=== PATIENT | female | born 1960 | race Caucasian/White ===

== ENCOUNTER 2017-07-20 19:07 | Inpatient (IN) | payer MEDICARE, OTHER ==
[~2017-07-20] VITALS: Ht 162.6 cm; Wt 53.4 kg
[~2017-07-20 19:07] MED LIST: MIDAZOLAM 1 MG/ML, 5ML ONE; PROPOFOL 10 MG/ML, 100ML IV ONE; SUCCINYLCHOLINE 20 MG/ML, 10ML ONE
[2017-07-20] MEDS ORDERED: PIPERACILLIN/TAZO/PMX 3.375GM 50 ML IVPB ONE (19:30)
[2017-07-20] MEDS ORDERED: VANCOMYCIN PER PHARMACY MC ONE (19:30)
[2017-07-20] MEDS ORDERED: VANCOMYCIN PMX 1GM/200ML 200 ML IV ONE (19:30)
[2017-07-20] MEDS ORDERED: ACETAMINOPHEN 500 MG TABLET PO ONE (19:30)
[2017-07-20] MEDS ORDERED: ACETAMINOPHEN 650 MG SUPP PR PRN (19:30)
[2017-07-20] MEDS ORDERED: SODIUM CHLORIDE 0.9% 1,000ML IVBOLUS ONE ×2 (19:30)
[2017-07-20] MEDS ORDERED: ACETAMINOPHEN 650 MG SUPP ONE (19:33)
[2017-07-20] MEDS ORDERED: MORPHINE SULFATE 4 MG/ML, 1ML ONE ×3 (19:33→22:49)
[2017-07-20] MEDS ORDERED: ONDANSETRON 2MG/ML, 2ML ONE (19:33)
[2017-07-20] MEDS ORDERED: PIPERACILLIN/TAZO/PMX 3.375GM 50 ML ONE (19:33)
[2017-07-20] MEDS: MORPHINE SULFATE 4 MG/ML, 1ML IVPush PRN ×2 (19:38→20:25)
[2017-07-20] MEDS ORDERED: PROMETHAZINE 25 MG/ML, 1ML ONE (19:38)
[2017-07-20] MEDS ORDERED: LABETALOL 5MG/ML, 20ML ONE (19:38)
[2017-07-20 19:47] LABS: INTERNATIONAL NORMALIZED RATIO 1.04 (0.93-1.1); PROTHROMBIN TIME 10.7 Seconds (9.6-11.5)
[2017-07-20 19:51] LABS: ALANINE AMINOTRANSFERASE 27 U/L (12-78); ALBUMIN 2.7 g/dL (3.4-5.0); ANION GAP 8 mmol/L (5-15); CALCIUM 8.3 mg/dL (8.5-10.1); CHLORIDE 100 mmol/L (98-107)
[2017-07-20 19:54] LABS: ALKALINE PHOSPHATASE 124 U/L (45-117); BILIRUBIN,TOTAL 0.6 mg/dL (0.2-1.0); CREATININE 0.69 mg/dL (0.55-1.02); TOTAL PROTEIN 8.2 g/dL (6.4-8.2)
[2017-07-20] MEDS ORDERED: PROMETHAZINE 25 MG/ML, 1ML IM ONE (20:00)
[2017-07-20] MEDS ORDERED: OXYC30TA66 PO (20:00)
[2017-07-20] MEDS ORDERED: CLINDAMYCIN PMX 900MG/50ML 50 ML IVPB ONE (20:00)
[2017-07-20] MEDS ORDERED: LABETALOL 5MG/ML, 20ML IVPush ONE (20:00)
[2017-07-20 20:06] LABS: PH, VENOUS 7.228 pH (7.320-7.420)
[2017-07-20 20:07] LABS: MICROSCOPIC INDICATED
[2017-07-20 20:19] LABS: BASOPHILS % (AUTO) 0 % (0-1); EOSINOPHILS % (AUTO) 0 % (1-7); LYMPHOCYTES # (AUTO) 0.78 x10^3/uL (1-3.4); LYMPHOCYTES % (AUTO) 7 % (22-44); MD NO; MEAN CORPUSCULAR HEMOGLOBIN 30.8 pg (27.0-34.8); MEAN CORPUSCULAR HGB CONC 32.8 g/dL (32.4-35.8); MEAN CORPUSCULAR VOLUME 93.8 fL (80-100); MEAN PLATELET VOLUME 7.5 fL (7.4-10.4); MONOCYTES # (AUTO) 0.47 x10^3/uL (0.2-0.8); MONOCYTES % (AUTO) 4 % (2-9); NEUTROPHILS # (AUTO) 10.24 x10^3/uL (1.8-6.8); NEUTROPHILS % (AUTO) 89 % (42-75); PLATELET COUNT 475 x10^3/uL (130-400); RED BLOOD COUNT 4.46 x10^6/uL (3.82-5.3); RED CELL DISTRIBUTION WIDTH 14.1 % (9.6-15.2)
[2017-07-20 20:25] LABS: CULTURE INDICATED? YES
[2017-07-20 20:27] LABS: AMPHETAMINE SCREEN, URINE Negative (Negative); BARBITURATE SCREEN, URINE Negative (Negative); BENZODIAZEPINE SCREEN, URINE Negative (Negative); CANNABINOID SCREEN, URINE Positive (Negative); COCAINE SCREEN, URINE Negative (Negative); METHADONE SCREEN, URINE Negative (Negative); OPIATE SCREEN, URINE Negative (Negative)
[2017-07-20 20:48] LABS: FREE T4 (FREE THYROXINE) 1.3 ng/dL (0.76-1.46); THYROID STIMULATING HORMONE 1.48 mIU/L (0.358-3.740)
[2017-07-20] MEDS ORDERED: LORazepam 2 MG/ML, 1ML ONE ×3 (20:58→22:59)
[2017-07-20] MEDS ORDERED: LORazepam 2 MG/ML, 1ML IVPush ONE ×2 (21:00→22:30)
[2017-07-20] MEDS ORDERED: LIDOCAINE 1%, 20ML INFIL ONE (21:00)
[2017-07-20] MEDS ORDERED: OMNIPAQUE 350 MG/ML, 100ML BOTTLE ONE (21:24)
[2017-07-20] MEDS ORDERED: LIDOCAINE 1%, 10ML ONE (21:28)
[2017-07-20] MEDS ORDERED: CLINDAMYCIN PMX 900MG/50ML 50 ML ONE (21:28)
[2017-07-20] MEDS ORDERED: MORPHINE SULFATE 4 MG/ML, 1ML IVPush ONE (22:30)
[2017-07-20] MEDS: NS + 20MEQ KCL 1,000 ML IV SCH (23:12)
[2017-07-20] MEDS ORDERED: LORazepam 2 MG/ML, 1ML IVPush PRN (23:30)
[2017-07-20] MEDS ORDERED: ONDANSETRON 2MG/ML, 2ML IVPush PRN (23:30)
[2017-07-20] MEDS ORDERED: VANCOMYCIN PER PHARMACY MC PRN (23:30)
[2017-07-20] MEDS ORDERED: hydrALAzine 20 MG/ML, 1ML IVPush PRN (23:30)
[2017-07-20] MEDS ORDERED: BISACODYL 10 MG SUPP PR PRN (23:30)
[2017-07-20] MEDS ORDERED: FAMOTIDINE 20 MG/2 ML ONE (23:53)
[2017-07-20] MEDS ORDERED: NS + 20MEQ KCL 1,000 ML IV ONE (23:53)
[2017-07-20] MEDS: FAMOTIDINE 20 MG/2 ML IVPush SCH (23:54)
[2017-07-21] MEDS ORDERED: ACETAMINOPHEN 650 MG SUPP PR PRN
[2017-07-21] MEDS ORDERED: PHARMACOKINETIC MONITORING MC PRN (01:00)
[2017-07-21] MEDS: PIPERACILLIN/TAZO/PMX 3.375GM 50 ML IV SCH ×4 (01:26→19:50)
[2017-07-21] MEDS ORDERED: LIDOCAINE-MPF 1%, 2ML ENDO PRN (02:00)
[2017-07-21] MEDS ORDERED: PHARMACY MAY ADJ FOR RENAL FX MC SCH (02:00)
[2017-07-21] MEDS: ALBUTEROL/IPRATROPIUM 2.5MG/0.5MG, 3 ML INLINE SCH ×6 (02:00→22:49)
[2017-07-21] MEDS ORDERED: SENNA/DOCUSATE TABLET NG PRN (02:00)
[2017-07-21] MEDS ORDERED: FAMOTIDINE 20 MG/2 ML IV SCH (02:00)
[2017-07-21] MEDS ORDERED: SODIUM CHLORIDE 0.9% 1,000ML IVBOLUS ONE ×4 (02:00→18:30)
[2017-07-21] MEDS ORDERED: SENNOSIDES 8.8 MG/5 ML ORAL SOL NG PRN (02:00)
[2017-07-21] MEDS ORDERED: LACTULOSE 20 GM/30 ML UDC NG PRN (02:00)
[2017-07-21] MEDS ORDERED: BISACODYL 10 MG SUPP PR PRN (02:00)
[2017-07-21] MEDS: PROPOFOL 100 ML IV PRN ×2 (02:02→09:48)
[2017-07-21 03:00] VITALS: BP 142/85
[2017-07-21] MEDS: ENOXAPARIN 40 MG/0.4 ML SQ SCH (03:25)
[2017-07-21 04:15] VITALS: BP 99/64
[2017-07-21 04:41] LABS: MEAN CORPUSCULAR HEMOGLOBIN 31.8 pg (27.0-34.8); MEAN CORPUSCULAR HGB CONC 33.2 g/dL (32.4-35.8); MEAN CORPUSCULAR VOLUME 95.6 fL (80-100); MEAN PLATELET VOLUME 7.3 fL (7.4-10.4); PLATELET COUNT 305 x10^3/uL (130-400); RED BLOOD COUNT 3.51 x10^6/uL (3.82-5.3); RED CELL DISTRIBUTION WIDTH 13.9 % (9.6-15.2)
[2017-07-21] MEDS: morphine SULFATE 10 MG/ML, 1ML IVPush PRN (04:47)
[2017-07-21] MEDS: CLINDAMYCIN PMX 600MG/50ML 50 ML IV SCH ×3 (04:48→20:40)
[2017-07-21 04:57] LABS: ALBUMIN 1.9 g/dL (3.4-5.0); ANION GAP 9 mmol/L (5-15); CALCIUM 6.5 mg/dL (8.5-10.1); CHLORIDE 107 mmol/L (98-107)
[2017-07-21 05:01] LABS: ALANINE AMINOTRANSFERASE 19 U/L (12-78); ALKALINE PHOSPHATASE 104 U/L (45-117); BILIRUBIN,TOTAL 0.3 mg/dL (0.2-1.0); CREATININE 0.66 mg/dL (0.55-1.02); TOTAL PROTEIN 6.2 g/dL (6.4-8.2)
[2017-07-21 05:04] LABS: BASOPHILS # (AUTO) 0.04 x10^3/uL (0-0.1); BASOPHILS % (AUTO) 0 % (0-1); EOSINOPHILS % (AUTO) 0 % (1-7); LYMPHOCYTES # (AUTO) 2.01 x10^3/uL (1-3.4); LYMPHOCYTES % (AUTO) 11 % (22-44); MD SCAN; MONOCYTES % (AUTO) 10 % (2-9); NEUTROPHILS # (AUTO) 14.15 x10^3/uL (1.8-6.8); NEUTROPHILS % (AUTO) 79 % (42-75)
[2017-07-21] MEDS: NS + 20MEQ KCL 1,000 ML IV SCH (08:16)
[2017-07-21] MEDS: FENTANYL PF 100 MCG/2ML IVPush PRN (08:16)
[2017-07-21] MEDS: FAMOTIDINE 20 MG/2 ML IVPush SCH ×2 (08:21→21:05)
[2017-07-21] MEDS: VANCOMYCIN PMX 1GM/200ML 200 ML IV SCH ×2 (09:04→21:05)
[2017-07-21] MEDS: NOREPINEPHRINE 4 MG in SODIUM CHLORIDE 0.9% 246 ML IV PRN ×3 (11:14→21:05)
[2017-07-21] MEDS ORDERED: PROPOFOL 10 MG/ML, 20ML ONE (12:10)
[2017-07-21] MEDS ORDERED: MIDAZOLAM 1 MG/ML, 2ML ONE (12:18)
[2017-07-21] MEDS ORDERED: ROCURONIUM 10 MG/ML,10ML ONE (12:28)
[2017-07-21] MEDS ORDERED: ALBUMIN HUMAN 5% 500 ML ONE (12:48)
[2017-07-21] MEDS ORDERED: FENTANYL PF 100 MCG/2ML ONE (13:04)
[2017-07-21] MEDS ORDERED: MAGNESIUM SULFATE PMX 4GM/100M 100 ML IV ONE (15:30)
[2017-07-21] MEDS: SODIUM CHLORIDE 0.9% 1,000 ML IV SCH (15:48)
[2017-07-21] MEDS ORDERED: NS + 20MEQ KCL 1,000 ML IV SCH (23:12)
[2017-07-22] MEDS: NOREPINEPHRINE 8 MG in SODIUM CHLORIDE 0.9% 242 ML IV PRN ×2 (01:29→19:42)
[2017-07-22] MEDS: PROPOFOL 100 ML IV PRN ×2 (01:32→17:26)
[2017-07-22] MEDS: ALBUTEROL/IPRATROPIUM 2.5MG/0.5MG, 3 ML INLINE SCH ×6 (01:50→22:24)
[2017-07-22] MEDS: ENOXAPARIN 40 MG/0.4 ML SQ SCH (02:32)
[2017-07-22] MEDS: PIPERACILLIN/TAZO/PMX 3.375GM 50 ML IV SCH ×4 (02:33→19:44)
[2017-07-22] MEDS: SODIUM CHLORIDE 0.9% 1,000 ML IV SCH ×4 (02:33→18:24)
[2017-07-22] MEDS: FENTANYL PF 100 MCG/2ML IVPush PRN ×5 (03:12→22:14)
[2017-07-22 04:00] VITALS: BP 104/61
[2017-07-22 04:17] LABS: BASOPHILS # (AUTO) 0.03 x10^3/uL (0-0.1); BASOPHILS % (AUTO) 0 % (0-1); EOSINOPHILS # (AUTO) 0.02 x10^3/uL (0-0.4); EOSINOPHILS % (AUTO) 0 % (1-7); LYMPHOCYTES # (AUTO) 1.13 x10^3/uL (1-3.4); LYMPHOCYTES % (AUTO) 10 % (22-44); MD NO; MEAN CORPUSCULAR HEMOGLOBIN 31.5 pg (27.0-34.8); MEAN CORPUSCULAR HGB CONC 33.3 g/dL (32.4-35.8); MEAN CORPUSCULAR VOLUME 94.6 fL (80-100); MONOCYTES # (AUTO) 0.15 x10^3/uL (0.2-0.8); MONOCYTES % (AUTO) 1 % (2-9); NEUTROPHILS # (AUTO) 10.16 x10^3/uL (1.8-6.8); NEUTROPHILS % (AUTO) 89 % (42-75); PLATELET COUNT 283 x10^3/uL (130-400); RED BLOOD COUNT 3.27 x10^6/uL (3.82-5.3); RED CELL DISTRIBUTION WIDTH 13.9 % (9.6-15.2)
[2017-07-22 04:30] LABS: ANION GAP 8 mmol/L (5-15); CALCIUM 6.7 mg/dL (8.5-10.1); CHLORIDE 111 mmol/L (98-107)
[2017-07-22] MEDS: CLINDAMYCIN PMX 600MG/50ML 50 ML IV SCH ×3 (04:55→21:25)
[2017-07-22] MEDS ORDERED: POTASSIUM CHLORIDE 20 MEQ TAB.ER.PRT PO ONE (05:30)
[2017-07-22] MEDS ORDERED: POTASSIUM CHLORIDE 20 MEQ PACKET PO ONE ×3 (08:30→10:00)
[2017-07-22] MEDS ORDERED: POTASSIUM PHOSPHATE 22 MEQ in SODIUM CHLORIDE 0.9% 250 ML IV ONE (09:00)
[2017-07-22] MEDS: VANCOMYCIN PMX 1GM/200ML 200 ML IV SCH ×2 (09:02→20:52)
[2017-07-22] MEDS: FAMOTIDINE 20 MG/2 ML IVPush SCH ×2 (09:03→21:15)
[2017-07-22] MEDS: ACETAMINOPHEN 650 MG/20.3 ML UDC PO PRN (14:26)
[2017-07-22 16:14] LABS: CLOSTRIDIUM DIFFICILE ANTIGEN NEGATIVE; CLOSTRIDIUM DIFFICILE TOXIN NEGATIVE (Negative)
[2017-07-23] MEDS: SODIUM CHLORIDE 0.9% 1,000 ML IV SCH ×3 (00:58→17:40)
[2017-07-23] MEDS: FENTANYL PF 100 MCG/2ML IVPush PRN ×6 (01:59→19:37)
[2017-07-23] MEDS: PIPERACILLIN/TAZO/PMX 3.375GM 50 ML IV SCH ×4 (01:59→20:09)
[2017-07-23] MEDS: ENOXAPARIN 40 MG/0.4 ML SQ SCH (02:04)
[2017-07-23] MEDS: ALBUTEROL/IPRATROPIUM 2.5MG/0.5MG, 3 ML INLINE SCH ×4 (02:36→14:15)
[2017-07-23] MEDS: PROPOFOL 100 ML IV PRN (03:25)
[2017-07-23 04:00] VITALS: BP 96/73
[2017-07-23 04:55] LABS: BASOPHILS # (AUTO) 0.03 x10^3/uL (0-0.1); BASOPHILS % (AUTO) 0 % (0-1); EOSINOPHILS # (AUTO) 0.01 x10^3/uL (0-0.4); EOSINOPHILS % (AUTO) 0 % (1-7); LYMPHOCYTES # (AUTO) 1.16 x10^3/uL (1-3.4); LYMPHOCYTES % (AUTO) 16 % (22-44); MD NO; MEAN CORPUSCULAR HGB CONC 33.1 g/dL (32.4-35.8); MEAN CORPUSCULAR VOLUME 93.8 fL (80-100); MEAN PLATELET VOLUME 7.5 fL (7.4-10.4); MONOCYTES # (AUTO) 0.26 x10^3/uL (0.2-0.8); MONOCYTES % (AUTO) 4 % (2-9); NEUTROPHILS # (AUTO) 6.07 x10^3/uL (1.8-6.8); NEUTROPHILS % (AUTO) 81 % (42-75); PLATELET COUNT 207 x10^3/uL (130-400); RED BLOOD COUNT 2.84 x10^6/uL (3.82-5.3); RED CELL DISTRIBUTION WIDTH 14.1 % (9.6-15.2)
[2017-07-23 04:57] LABS: CHLORIDE 112 mmol/L (98-107)
[2017-07-23 04:58] LABS: ANION GAP 6 mmol/L (5-15); CALCIUM 6.6 mg/dL (8.5-10.1)
[2017-07-23 04:59] LABS: CREATININE 0.52 mg/dL (0.55-1.02)
[2017-07-23] MEDS: CLINDAMYCIN PMX 600MG/50ML 50 ML IV SCH (05:05)
[2017-07-23] MEDS ORDERED: POTASSIUM CHLORIDE 40 MEQ in SODIUM CHLORIDE 0.9% 100 ML IV ONE ×2 (05:30→18:00)
[2017-07-23] MEDS ORDERED: POTASSIUM PHOSPHATE 44 MEQ in SODIUM CHLORIDE 0.9% 500 ML IV ONE (09:30)
[2017-07-23] MEDS: FAMOTIDINE 20 MG/2 ML IVPush SCH ×2 (09:40→21:22)
[2017-07-23] MEDS: VANCOMYCIN PMX 1GM/200ML 200 ML IV SCH ×2 (09:45→21:22)
[2017-07-23] MEDS ORDERED: ALBUTEROL/IPRATROPIUM 2.5MG/0.5MG, 3 ML NPPB SCH (15:00)
[2017-07-23] MEDS ORDERED: MAGNESIUM SULFATE PMX 2GM/50ML 50 ML IV ONE (17:00)
[2017-07-23] MEDS ORDERED: ALBUTEROL/IPRATROPIUM 2.5MG/0.5MG, 3 ML ONE (18:23)
[2017-07-23] MEDS: ACETAMINOPHEN 650 MG/20.3 ML UDC PO PRN (19:37)
[2017-07-23] MEDS: ALBUTEROL/IPRATROPIUM 2.5MG/0.5MG, 3 ML NPPB SCH (20:41)
[2017-07-23] MEDS ORDERED: POTASSIUM CHLORIDE 20 MEQ TAB.ER.PRT PO ONE (22:30)
[2017-07-23] MEDS ORDERED: POTASSIUM CHLORIDE 40 MEQ in SODIUM CHLORIDE 0.9% 500 ML IV ONE (22:30)
[2017-07-24] MEDS: FENTANYL PF 100 MCG/2ML IVPush PRN ×2 (00:19→03:33)
[2017-07-24] MEDS: PIPERACILLIN/TAZO/PMX 3.375GM 50 ML IV SCH ×4 (02:30→19:30)
[2017-07-24] MEDS: SODIUM CHLORIDE 0.9% 1,000 ML IV SCH (02:31)
[2017-07-24] MEDS: ENOXAPARIN 40 MG/0.4 ML SQ SCH (02:31)
[2017-07-24 03:56] LABS: BASOPHILS # (AUTO) 0.02 x10^3/uL (0-0.1); BASOPHILS % (AUTO) 0 % (0-1); EOSINOPHILS # (AUTO) 0.02 x10^3/uL (0-0.4); EOSINOPHILS % (AUTO) 0 % (1-7); LYMPHOCYTES % (AUTO) 27 % (22-44); MD NO; MEAN CORPUSCULAR HGB CONC 32.8 g/dL (32.4-35.8); MEAN CORPUSCULAR VOLUME 94.2 fL (80-100); MEAN PLATELET VOLUME 7.4 fL (7.4-10.4); MONOCYTES # (AUTO) 0.29 x10^3/uL (0.2-0.8); MONOCYTES % (AUTO) 6 % (2-9); NEUTROPHILS # (AUTO) 3.43 x10^3/uL (1.8-6.8); NEUTROPHILS % (AUTO) 66 % (42-75); PLATELET COUNT 201 x10^3/uL (130-400); RED BLOOD COUNT 3.01 x10^6/uL (3.82-5.3); RED CELL DISTRIBUTION WIDTH 14.4 % (9.6-15.2)
[2017-07-24 04:06] LABS: ANION GAP 6 mmol/L (5-15); CALCIUM 7.1 mg/dL (8.5-10.1); CHLORIDE 113 mmol/L (98-107); CREATININE 0.43 mg/dL (0.55-1.02)
[2017-07-24 04:30] VITALS: BP 136/76
[2017-07-24] MEDS: morphine SULFATE 10 MG/ML, 1ML IVPush PRN ×2 (04:44→21:54)
[2017-07-24] MEDS: ACETAMINOPHEN 650 MG/20.3 ML UDC PO PRN (04:44)
[2017-07-24] MEDS: ALBUTEROL/IPRATROPIUM 2.5MG/0.5MG, 3 ML NPPB SCH ×2 (07:00→18:33)
[2017-07-24] MEDS: VANCOMYCIN PMX 1GM/200ML 200 ML IV SCH (09:29)
[2017-07-24] MEDS: POTASSIUM CHLORIDE 10% 40 MEQ/30 ML UDC PO SCH ×2 (09:41→13:30)
[2017-07-24] MEDS: FAMOTIDINE 20 MG/2 ML IVPush SCH ×2 (09:41→19:30)
[2017-07-24] MEDS ORDERED: OXYcodone IR 5MG TABLET PO PRN (10:00)
[2017-07-24] MEDS ORDERED: morphine SULFATE 10 MG/ML, 1ML IVPush PRN (11:30)
[2017-07-24 14:39] VITALS: BP 163/95
[2017-07-24] MEDS: OXYcodone IR 5MG TABLET PO PRN ×3 (15:17→23:27)
[2017-07-24] MEDS ORDERED: SODIUM CHLORIDE 0.9% 1,000 ML IV SCH (15:30)
[2017-07-24 20:00] VITALS: BP 153/91
[2017-07-24] MEDS ORDERED: MORPHINE SULFATE 4 MG/ML, 1ML ONE (21:46)
[2017-07-24] MEDS ORDERED: METHOCARBAMOL 750 MG TABLET ONE (21:46)
[2017-07-24] MEDS: METHOCARBAMOL 750 MG TABLET PO PRN (21:54)
[2017-07-25 02:00] VITALS: BP 148/84
[2017-07-25] MEDS: PIPERACILLIN/TAZO/PMX 3.375GM 50 ML IV SCH ×4 (02:59→20:21)
[2017-07-25] MEDS: ENOXAPARIN 40 MG/0.4 ML SQ SCH (02:59)
[2017-07-25] MEDS: OXYcodone IR 5MG TABLET PO PRN ×3 (05:57→20:26)
[2017-07-25 06:31] LABS: CHLORIDE 104 mmol/L (98-107)
[2017-07-25 06:32] LABS: ANION GAP 7 mmol/L (5-15); CALCIUM 7.8 mg/dL (8.5-10.1); CREATININE 0.41 mg/dL (0.55-1.02)
[2017-07-25 06:37] LABS: BASOPHILS # (AUTO) 0.02 x10^3/uL (0-0.1); BASOPHILS % (AUTO) 0 % (0-1); EOSINOPHILS # (AUTO) 0.02 x10^3/uL (0-0.4); EOSINOPHILS % (AUTO) 0 % (1-7); LYMPHOCYTES # (AUTO) 1.71 x10^3/uL (1-3.4); LYMPHOCYTES % (AUTO) 21 % (22-44); MD NO; MEAN CORPUSCULAR HGB CONC 33.4 g/dL (32.4-35.8); MEAN CORPUSCULAR VOLUME 92.9 fL (80-100); MEAN PLATELET VOLUME 7.7 fL (7.4-10.4); MONOCYTES # (AUTO) 0.66 x10^3/uL (0.2-0.8); MONOCYTES % (AUTO) 8 % (2-9); NEUTROPHILS # (AUTO) 5.66 x10^3/uL (1.8-6.8); NEUTROPHILS % (AUTO) 70 % (42-75); PLATELET COUNT 216 x10^3/uL (130-400); RED BLOOD COUNT 3.36 x10^6/uL (3.82-5.3); RED CELL DISTRIBUTION WIDTH 14.3 % (9.6-15.2)
[2017-07-25] MEDS: morphine SULFATE 10 MG/ML, 1ML IVPush PRN ×4 (06:45→23:58)
[2017-07-25] MEDS: METHOCARBAMOL 750 MG TABLET PO PRN ×2 (07:07→14:57)
[2017-07-25] MEDS: ALBUTEROL/IPRATROPIUM 2.5MG/0.5MG, 3 ML NPPB PRN (07:30)
[2017-07-25 08:33] VITALS: BP 132/87
[2017-07-25] MEDS: FAMOTIDINE 20 MG/2 ML IVPush SCH ×2 (09:37→20:21)
[2017-07-25 14:19] VITALS: BP 166/112
[2017-07-25 19:49] VITALS: BP 132/93
[2017-07-26] MEDS: OXYcodone IR 5MG TABLET PO PRN ×4 (00:29→19:52)
[2017-07-26] MEDS: PIPERACILLIN/TAZO/PMX 3.375GM 50 ML IV SCH ×4 (02:06→20:13)
[2017-07-26] MEDS: ENOXAPARIN 40 MG/0.4 ML SQ SCH (02:07)
[2017-07-26 02:16] VITALS: BP 150/93
[2017-07-26] MEDS: morphine SULFATE 10 MG/ML, 1ML IVPush PRN ×3 (05:25→12:38)
[2017-07-26 06:39] LABS: BASOPHILS # (AUTO) 0.03 x10^3/uL (0-0.1); BASOPHILS % (AUTO) 0 % (0-1); EOSINOPHILS # (AUTO) 0.01 x10^3/uL (0-0.4); EOSINOPHILS % (AUTO) 0 % (1-7); LYMPHOCYTES # (AUTO) 1.79 x10^3/uL (1-3.4); LYMPHOCYTES % (AUTO) 15 % (22-44); MD NO; MEAN CORPUSCULAR HGB CONC 32.8 g/dL (32.4-35.8); MEAN CORPUSCULAR VOLUME 94.4 fL (80-100); MEAN PLATELET VOLUME 7.7 fL (7.4-10.4); MONOCYTES # (AUTO) 0.62 x10^3/uL (0.2-0.8); MONOCYTES % (AUTO) 5 % (2-9); NEUTROPHILS # (AUTO) 9.73 x10^3/uL (1.8-6.8); NEUTROPHILS % (AUTO) 80 % (42-75); PLATELET COUNT 243 x10^3/uL (130-400); RED BLOOD COUNT 3.46 x10^6/uL (3.82-5.3); RED CELL DISTRIBUTION WIDTH 14.2 % (9.6-15.2)
[2017-07-26 06:47] LABS: ANION GAP 3 mmol/L (5-15); CHLORIDE 99 mmol/L (98-107)
[2017-07-26 08:00] VITALS: BP 148/84
[2017-07-26] MEDS: FAMOTIDINE 20 MG/2 ML IVPush SCH ×2 (08:12→20:13)
[2017-07-26] MEDS: METHOCARBAMOL 750 MG TABLET PO PRN ×2 (08:24→17:34)
[2017-07-26] MEDS ORDERED: OXYcodone/APAP 5/325MG TABLET PO ONE (13:30)
[2017-07-26 14:15] VITALS: BP 156/96
[2017-07-26 20:19] VITALS: BP 150/96
[2017-07-27] MEDS: PIPERACILLIN/TAZO/PMX 3.375GM 50 ML IV SCH ×4 (02:03→20:44)
[2017-07-27] MEDS: OXYcodone IR 5MG TABLET PO PRN ×5 (02:03→22:03)
[2017-07-27] MEDS: ENOXAPARIN 40 MG/0.4 ML SQ SCH (02:03)
[2017-07-27 02:24] VITALS: BP 137/87
[2017-07-27 05:13] LABS: BASOPHILS # (AUTO) 0.03 x10^3/uL (0-0.1); BASOPHILS % (AUTO) 0 % (0-1); EOSINOPHILS # (AUTO) 0.02 x10^3/uL (0-0.4); EOSINOPHILS % (AUTO) 0 % (1-7); LYMPHOCYTES # (AUTO) 1.86 x10^3/uL (1-3.4); LYMPHOCYTES % (AUTO) 22 % (22-44); MD NO; MEAN CORPUSCULAR HEMOGLOBIN 30.9 pg (27.0-34.8); MEAN CORPUSCULAR HGB CONC 33.2 g/dL (32.4-35.8); MEAN CORPUSCULAR VOLUME 93.1 fL (80-100); MEAN PLATELET VOLUME 8.1 fL (7.4-10.4); MONOCYTES # (AUTO) 0.35 x10^3/uL (0.2-0.8); MONOCYTES % (AUTO) 4 % (2-9); NEUTROPHILS # (AUTO) 6.02 x10^3/uL (1.8-6.8); NEUTROPHILS % (AUTO) 73 % (42-75); PLATELET COUNT 231 x10^3/uL (130-400); RED BLOOD COUNT 3.15 x10^6/uL (3.82-5.3)
[2017-07-27 05:15] LABS: ANION GAP 5 mmol/L (5-15); CALCIUM 7.9 mg/dL (8.5-10.1); CHLORIDE 95 mmol/L (98-107)
[2017-07-27 05:18] LABS: CREATININE 0.47 mg/dL (0.55-1.02)
[2017-07-27 08:00] VITALS: BP 148/97
[2017-07-27] MEDS: FAMOTIDINE 20 MG/2 ML IVPush SCH ×2 (09:41→20:44)
[2017-07-27] MEDS: NS + 20MEQ KCL 1,000 ML IV SCH ×2 (11:57→20:44)
[2017-07-27] MEDS: POTASSIUM CHLORIDE 10% 40 MEQ/30 ML UDC PO SCH ×2 (12:04→20:45)
[2017-07-27] MEDS: METHOCARBAMOL 750 MG TABLET PO PRN ×2 (13:18→20:44)
[2017-07-27 15:10] VITALS: BP 159/108
[2017-07-27 21:10] VITALS: BP 164/109
[2017-07-27 22:20] VITALS: BP 205/134
[2017-07-27] MEDS: ALBUTEROL/IPRATROPIUM 2.5MG/0.5MG, 3 ML NPPB PRN (22:40)
[2017-07-27 23:28] LABS: TROPONIN I 0.123 ng/mL (0.000-0.045)
[2017-07-28] MEDS ORDERED: methylPREDNISolone SOD SUCC 125 MG/2 ML IVPush ONE
[2017-07-28] MEDS ORDERED: FUROSEMIDE 40 MG/4 ML ONE (00:27)
[2017-07-28] MEDS ORDERED: FUROSEMIDE 40 MG/4 ML IV ONE (00:30)
[2017-07-28] MEDS: OXYcodone IR 5MG TABLET PO PRN ×5 (02:07→21:34)
[2017-07-28] MEDS: ENOXAPARIN 40 MG/0.4 ML SQ SCH (02:07)
[2017-07-28] MEDS: PIPERACILLIN/TAZO/PMX 3.375GM 50 ML IV SCH ×4 (02:27→23:56)
[2017-07-28] MEDS ORDERED: SODIUM CHLORIDE 0.9% 1,000 ML IV SCH (02:30)
[2017-07-28 05:00] VITALS: BP 122/8
[2017-07-28 05:05] LABS: MEAN CORPUSCULAR HEMOGLOBIN 31.2 pg (27.0-34.8); MEAN CORPUSCULAR HGB CONC 33.7 g/dL (32.4-35.8); MEAN CORPUSCULAR VOLUME 92.5 fL (80-100); MEAN PLATELET VOLUME 8.7 fL (7.4-10.4); PLATELET COUNT 351 x10^3/uL (130-400); RED BLOOD COUNT 3.65 x10^6/uL (3.82-5.3); RED CELL DISTRIBUTION WIDTH 14.2 % (9.6-15.2)
[2017-07-28 05:07] LABS: ALANINE AMINOTRANSFERASE 17 U/L (12-78); ALBUMIN 2.5 g/dL (3.4-5.0); ANION GAP 6 mmol/L (5-15); CHLORIDE 96 mmol/L (98-107); CREATININE 0.66 mg/dL (0.55-1.02)
[2017-07-28 05:09] LABS: ALKALINE PHOSPHATASE 92 U/L (45-117); BILIRUBIN,TOTAL 0.7 mg/dL (0.2-1.0); TOTAL PROTEIN 8.4 g/dL (6.4-8.2)
[2017-07-28 05:40] LABS: BASOPHILS # (AUTO) 0.01 x10^3/uL (0-0.1); BASOPHILS % (AUTO) 0 % (0-1); EOSINOPHILS % (AUTO) 0 % (1-7); LYMPHOCYTES # (AUTO) 0.57 x10^3/uL (1-3.4); LYMPHOCYTES % (AUTO) 5 % (22-44); MD SCAN; MONOCYTES # (AUTO) 0.09 x10^3/uL (0.2-0.8); MONOCYTES % (AUTO) 1 % (2-9); NEUTROPHILS % (AUTO) 95 % (42-75)
[2017-07-28] MEDS ORDERED: methylPREDNISolone SOD SUCC 40 MG/ML IVPush SCH (06:00)
[2017-07-28] MEDS: POTASSIUM CHLORIDE 10% 40 MEQ/30 ML UDC PO SCH (08:29)
[2017-07-28] MEDS: FAMOTIDINE 20 MG/2 ML IVPush SCH (09:09)
[2017-07-28] MEDS ORDERED: FUROSEMIDE 20 MG/2 ML IV ONE (13:00)
[2017-07-28] MEDS: POTASSIUM CHLORIDE 20 MEQ TAB.ER.PRT PO SCH (16:20)
[2017-07-28 22:00] VITALS: BP 131/89
[2017-07-29] MEDS: OXYcodone IR 5MG TABLET PO PRN ×2 (01:31→09:56)
[2017-07-29] MEDS: ENOXAPARIN 40 MG/0.4 ML SQ SCH (01:31)
[2017-07-29 02:50] VITALS: BP 129/87
[2017-07-29 04:44] LABS: BASOPHILS # (AUTO) 0.04 x10^3/uL (0-0.1); BASOPHILS % (AUTO) 0 % (0-1); EOSINOPHILS # (AUTO) 0.02 x10^3/uL (0-0.4); EOSINOPHILS % (AUTO) 0 % (1-7); LYMPHOCYTES # (AUTO) 2.19 x10^3/uL (1-3.4); LYMPHOCYTES % (AUTO) 17 % (22-44); MD NO; MEAN CORPUSCULAR HGB CONC 33.3 g/dL (32.4-35.8); MEAN CORPUSCULAR VOLUME 93.1 fL (80-100); MEAN PLATELET VOLUME 8.4 fL (7.4-10.4); MONOCYTES # (AUTO) 0.72 x10^3/uL (0.2-0.8); MONOCYTES % (AUTO) 6 % (2-9); NEUTROPHILS # (AUTO) 9.94 x10^3/uL (1.8-6.8); NEUTROPHILS % (AUTO) 77 % (42-75); PLATELET COUNT 377 x10^3/uL (130-400); RED BLOOD COUNT 3.33 x10^6/uL (3.82-5.3); RED CELL DISTRIBUTION WIDTH 14.3 % (9.6-15.2)
[2017-07-29 04:57] LABS: CHLORIDE 98 mmol/L (98-107)
[2017-07-29 05:02] LABS: ANION GAP 6 mmol/L (5-15); CALCIUM 8.1 mg/dL (8.5-10.1); CREATININE 0.66 mg/dL (0.55-1.02)
[2017-07-29] MEDS: PIPERACILLIN/TAZO/PMX 3.375GM 50 ML IV SCH (05:50)
[2017-07-29 07:51] VITALS: BP 127/82
[2017-07-29] MEDS: POTASSIUM CHLORIDE 20 MEQ TAB.ER.PRT PO SCH (08:44)
[2017-07-29] MEDS ORDERED: POTASSIUM CHLORIDE 20 MEQ TAB.ER.PRT PO SCH (09:00)
[2017-07-29] MEDS ORDERED: OXYC5TAB3 PO (09:17)
[2017-07-29] MEDS ORDERED: METH750T2 PO (09:17)
[2017-07-29] MEDS ORDERED: ENOX40SY4 SQ (09:17)
[2017-07-29] MEDS ORDERED: FLU VACC QS2017-18 (36MOS+) UP/PF 0.5 ML IM-VACC ONE (10:30)
[2017-07-29] MEDS ORDERED: PNEUMOCOCCAL 23 VACCINE IM-VACC ONE (10:30)
== END 2017-07-29 14:12 | DRG 853 ==
LOC: ED 22:59 → EDIP 23:00 → CCU 07-21 00:46 → 4NOR 07-24 13:48 → CCU 07-27 23:29 → 4EST 07-28 17:49
PROVIDERS: ADMIT Surgery; ATTEND Hospitalist
PROC: 0T9B70Z Drainage of Bladder with Drainage Device, Via Natural or Artificial Opening (ICD-10-PCS; 2017-07-20)
PROC: 0JBL0ZZ Excision of Right Upper Leg Subcutaneous Tissue and Fascia, Open Approach (ICD-10-PCS; 2017-07-21)
PROC: 02HV33Z Insertion of Infusion Device into Superior Vena Cava, Percutaneous Approach (ICD-10-PCS; 2017-07-21)
PROC: B548ZZA Ultrasonography of Superior Vena Cava, Guidance (ICD-10-PCS; 2017-07-21)
PROC: 0JBM0ZZ Excision of Left Upper Leg Subcutaneous Tissue and Fascia, Open Approach (ICD-10-PCS; principal; 2017-07-21 12:30)
PROC: 5A1945Z Respiratory Ventilation, 24-96 Consecutive Hours (ICD-10-PCS; 2017-07-22)
PROC: 0BH17EZ Insertion of Endotracheal Airway into Trachea, Via Natural or Artificial Opening (ICD-10-PCS; 2017-07-22)
DX: A41.01 Sepsis due to Methicillin susceptible Staphylococcus aureus (principal); J96.00 Acute respiratory failure, unspecified whether with hypoxia or hypercapnia; E43 Unspecified severe protein-calorie malnutrition; R65.21 Severe sepsis with septic shock; G93.41 Metabolic encephalopathy; G04.90 Encephalitis and encephalomyelitis, unspecified; M72.6 Necrotizing fasciitis; L02.211 Cutaneous abscess of abdominal wall; L02.415 Cutaneous abscess of right lower limb; E87.0 Hyperosmolality and hypernatremia; L02.31 Cutaneous abscess of buttock; L02.416 Cutaneous abscess of left lower limb; Z99.11 Dependence on respirator [ventilator] status; B19.20 Unspecified viral hepatitis C without hepatic coma; D64.9 Anemia, unspecified; E03.9 Hypothyroidism, unspecified; E83.42 Hypomagnesemia; E87.5 Hyperkalemia; E87.6 Hypokalemia; F12.10 Cannabis abuse, uncomplicated; G35 Multiple sclerosis; I10 Essential (primary) hypertension; I73.00 Raynaud's syndrome without gangrene; L93.0 Discoid lupus erythematosus; M60.9 Myositis, unspecified; M79.7 Fibromyalgia; N19 Unspecified kidney failure; R56.9 Unspecified convulsions; Z88.8 Allergy status to other drugs, medicaments and biological substances; Z68.20 Body mass index [BMI] 20.0-20.9, adult
CPT/HCPCS: 36415; 36569; 36600; 70450; 71010; 72193; 76937; 77001; 80048; 80053; 80074; 80202; 80307; 81001; 82533; 82803; 82962; 83605; 83735; 84100; 84132; 84145; 84439; 84443; 84478; 84484; 85025; 85610; 86703; 87040; 87070; 87075; 87077; 87081; 87086; 87147; 87186; 87205; 87324; 87521; 87899; 90686; 90732; 93005; 94002; 94003; 94150; 94640; 95819; 96365; 96367; 96375; 96376; J1650; J1940; J2250; J2543; J2550; J2704; J3010; J3370; J3480; J7620; P9045; Q9967; C1751; G0435; G0479; J0330; J0360; J2060; J2270; J2920; J2930; J3475; J7030; J7040; J7050; S0028